=== PATIENT | male | born 1985 | race Caucasian/White ===

== ENCOUNTER 2021-12-24 12:37 | Emergency (ER) | payer SELFPAY ==
[~2021-12-24] VITALS: Ht 190.5 cm; Wt 91.6 kg
== END 2021-12-24 16:09 | disposition home or self-care (01) ==
LOC: ER 12:40
DX: R07.89 Other chest pain (principal); R06.02 Shortness of breath; M25.511 Pain in right shoulder; M79.18 Myalgia, other site; F17.210 Nicotine dependence, cigarettes, uncomplicated
CPT/HCPCS: 71046; 99282